=== PATIENT | female | born 1965 | race Native Hawaiian/Other Pacific Islander ===

== ENCOUNTER 2016-08-30 13:44 | Outpatient (CLI) | payer OTHER ==
[~2016-08-30 13:44] MED LIST: ACID REDUCER150 MG PO; ALBU90AE13 INH; BENA20TA2 PO; CIPRO XR500 MG PO; CITALOPRAM40 MG PO; CYCL10TA35 PO; GLIM2TAB PO; MELOXICAM7.5 MG OR; METFTAB PO; TRAM50TA PO
== END 2016-08-30 19:10 | disposition home or self-care (01) ==
LOC: RAD 13:44
DX: M79.605 Pain in left leg (principal)

== ENCOUNTER 2016-09-06 09:04 | Outpatient (CLI) | payer OTHER ==
[2016-09-06 10:11] LABS: PLATELET COUNT 252 K/uL (152-353)
[2016-09-06 10:21] LABS: SODIUM 139 mmol/L (136-145)
== END 2016-09-06 10:04 | disposition home or self-care (01) ==
LOC: LABW 09:04
PROVIDERS: Internal Medicine
DX: E11.9 Type 2 diabetes mellitus without complications (principal)
CPT/HCPCS: 36415; 80053; 80061; 81000; 82043; 82570; 83036; 84439; 84443; 85027

== ENCOUNTER 2016-10-27 10:33 | Outpatient (CLI) | payer OTHER | END 2016-10-27 19:08 | disposition home or self-care (01) | LOC: US 10:33 | DX: M79.605 Pain in left leg (principal); M79.604 Pain in right leg ==

== ENCOUNTER 2016-11-04 21:47 | Outpatient (CLI) | payer OTHER | END 2016-11-04 22:25 | disposition short-term general hospital (02) | LOC: AMB 21:47 | DX: M25.512 Pain in left shoulder (principal); W10.8XXA Fall (on) (from) other stairs and steps, initial encounter; Y92.098 Other place in other non-institutional residence as the place of occurrence of the external cause | CPT/HCPCS: A0425; A0427 ==

== ENCOUNTER 2016-11-27 11:15 | Inpatient (IN) | payer OTHER ==
[~2016-11-27] VITALS: Ht 160 cm; Wt 132.7 kg
[2016-11-27 12:19] VITALS: BP 164/70; TEMP 97.7; Ht 160 cm; Wt 132.7 kg
[2016-11-27 13:00] LABS: PLATELET COUNT 242 K/uL (152-353)
[2016-11-27 13:09] LABS: SODIUM 131 mmol/L (136-145)
[2016-11-27] MEDS ORDERED: GLIM4TAB PO (13:58)
[2016-11-27] MEDS ORDERED: JANUMET1 TA1 PO (14:00)
[2016-11-27] MEDS ORDERED: JANUMET1 TAB PO (14:00)
[2016-11-27] MEDS ORDERED: GABA300C2 PO (14:02)
[2016-11-27] MEDS ORDERED: EC-NAPROSYN500 MG PO (14:02)
[2016-11-27] MEDS ORDERED: HYDR-3182 PO (14:04)
[2016-11-27 16:00] VITALS: BP 148/71; TEMP 98.9
[2016-11-27 20:09] VITALS: BP 151/80; TEMP 98.4
[2016-11-28 00:16] VITALS: BP 135/75; TEMP 98.6
[2016-11-28 04:00] VITALS: BP 92/49; TEMP 97.7
[2016-11-28 04:48] LABS: PLATELET COUNT 287 K/uL (152-353)
[2016-11-28 05:12] LABS: POTASSIUM 3.8 mmol/L (3.6-5.2); SODIUM 142 mmol/L (136-145)
[2016-11-28 08:00] VITALS: BP 118/64; TEMP 98.2
[2016-11-28 12:00] VITALS: BP 100/55; TEMP 98.5
[2016-11-28 16:00] VITALS: BP 90/53; TEMP 97.9
[2016-11-28 20:21] VITALS: BP 96/53; TEMP 97.8
[2016-11-29] VITALS (7 sets, daily range): BP systolic 93–141; BP diastolic 38–71; TEMP 97.5–98.2
[2016-11-29 04:43] LABS: PLATELET COUNT 219 K/uL (152-353)
[2016-11-29 04:58] LABS: POTASSIUM 3.9 mmol/L (3.6-5.2)
[2016-11-30 00:13] VITALS: BP 124/70; TEMP 98
[2016-11-30 04:00] VITALS: BP 133/65; TEMP 97.8
[2016-11-30 04:30] LABS: PLATELET COUNT 213 K/uL (152-353)
[2016-11-30 04:52] LABS: POTASSIUM 4.3 mmol/L (3.6-5.2)
[2016-11-30 07:58] VITALS: BP 124/73; TEMP 97.9
[2016-11-30 12:00] VITALS: BP 138/47; TEMP 98
[2016-11-30 16:00] VITALS: BP 110/64; TEMP 98.2
[2016-11-30 20:22] VITALS: BP 127/72; TEMP 97.9
[2016-12-01] VITALS: BP 103/58; TEMP 97.9
[2016-12-01 04:00] VITALS: BP 125/79; TEMP 97.9
[2016-12-01 05:18] LABS: PLATELET COUNT 213 K/uL (152-353)
[2016-12-01 05:34] LABS: POTASSIUM 4.3 mmol/L (3.6-5.2)
[2016-12-01 08:15] VITALS: BP 168/78; TEMP 98.1
[2016-12-01 12:00] VITALS: BP 132/83; TEMP 98.1
[2016-12-01 16:56] VITALS: BP 107/67; TEMP 97.6
== END 2016-12-01 18:00 | disposition home or self-care (01) | DRG 603 ==
LOC: MED/SURG 11:15
PROVIDERS: Emergency Medicine; ADMIT Internal Medicine
DX: L03.116 Cellulitis of left lower limb (principal); E11.9 Type 2 diabetes mellitus without complications; K59.09 Other constipation; R30.0 Dysuria; S40.022A Contusion of left upper arm, initial encounter
CPT/HCPCS: 36415; 80053; 81000; 82948; 83735; 85027; 85651; 86140; 96365; 96366; 96367; 96372; J1650; J1815; J1956; J2360; J2405; J3475

== ENCOUNTER 2017-02-09 08:22 | Outpatient (CLI) | payer OTHER ==
[~2017-02-09 08:22] MED LIST changes: +EC-NAPROSYN500 MG PO; +GABA300C2 PO; +GLIM4TAB PO; +HYDR-3182 PO; +JANUMET1 TA1 PO; +JANUMET1 TAB PO
== END 2017-02-09 09:30 | disposition home or self-care (01) ==
LOC: CT 08:22
DX: R51 Headache (principal)

== ENCOUNTER 2017-02-12 18:09 | Inpatient (IN) | payer OTHER ==
[2017-02-12] VITALS (26 sets, daily range): BP systolic 68–115; BP diastolic 41–72; TEMP 96.4
[~2017-02-12] VITALS: Ht 160 cm; Wt 142.2 kg
[2017-02-12 19:19] LABS: PLATELET COUNT 259 K/uL (152-353)
[2017-02-12 19:43] LABS: POTASSIUM 3.9 mmol/L (3.6-5.2)
[2017-02-13] VITALS (22 sets, daily range): BP systolic 70–162; BP diastolic 30–72; TEMP 97.1–984; Ht 160 cm; Wt 142.2 kg
[2017-02-13 06:11] LABS: PLATELET COUNT 161 K/uL (152-353)
[2017-02-13 06:20] LABS: POTASSIUM 3.6 mmol/L (3.6-5.2)
[2017-02-14] VITALS (23 sets, daily range): BP systolic 80–169; BP diastolic 43–92; TEMP 97.5–99.5
[2017-02-14 06:29] LABS: PLATELET COUNT 157 K/uL (152-353)
[2017-02-14 06:46] LABS: POTASSIUM 3.7 mmol/L (3.6-5.2)
[2017-02-15] VITALS (16 sets, daily range): BP systolic 84–139; BP diastolic 56–83; TEMP 97.5–98.5
[2017-02-15 06:38] LABS: PLATELET COUNT 155 K/uL (152-353)
[2017-02-15 06:54] LABS: POTASSIUM 3.7 mmol/L (3.6-5.2)
[2017-02-16] VITALS: BP 106/53; TEMP 98.5
[2017-02-16 04:00] VITALS: BP 160/80; TEMP 98
[2017-02-16 06:36] LABS: POTASSIUM 3.9 mmol/L (3.6-5.2)
[2017-02-16 06:50] LABS: PLATELET COUNT 141 K/uL (152-353)
[2017-02-16 08:00] VITALS: BP 149/72; TEMP 97.8
[2017-02-16 12:00] VITALS: BP 143/71; TEMP 97.9
[2017-02-16 16:00] VITALS: BP 157/61; TEMP 98.6
[2017-02-16 20:00] VITALS: BP 150/57; TEMP 97.8
[2017-02-17] VITALS: BP 115/70; TEMP 98.2
[2017-02-17 04:00] VITALS: BP 146/78; TEMP 97.9
[2017-02-17 04:35] LABS: PLATELET COUNT 148 K/uL (152-353)
[2017-02-17 05:06] LABS: POTASSIUM 3.6 mmol/L (3.6-5.2); SODIUM 139 mmol/L (136-145)
[2017-02-17 08:00] VITALS: BP 172/89; TEMP 97.7
[2017-02-17 12:00] VITALS: BP 155/86; TEMP 98.2
[2017-02-17 16:00] VITALS: BP 171/77; TEMP 98.1
[2017-02-17 20:00] VITALS: BP 176/65; TEMP 97.8
[2017-02-18] VITALS: BP 122/65; TEMP 97.8
[2017-02-18 04:00] VITALS: BP 140/66; TEMP 98.1
[2017-02-18 08:00] VITALS: BP 154/85; TEMP 98
[2017-02-18 12:00] VITALS: BP 158/55; BP 177/87; TEMP 98.1; TEMP 99.1
[2017-02-18 16:00] VITALS: BP 153/68; TEMP 97.9
[2017-02-18 20:00] VITALS: BP 167/66; TEMP 97.6
[2017-02-19] VITALS: BP 153/67; TEMP 98.6
[2017-02-19 04:00] VITALS: BP 159/67; TEMP 98.7
[2017-02-19 08:00] VITALS: BP 166/93; TEMP 98.7
[2017-02-19 11:53] VITALS: BP 150/76; TEMP 98.3
== END 2017-02-19 12:45 | disposition home or self-care (01) | DRG 315 ==
LOC: ED 18:09 → ICU 23:12 → MED/SURG 02-15 17:00
PROVIDERS: Emergency Medicine; ADMIT Specialist
DX: I95.89 Other hypotension (principal); L03.116 Cellulitis of left lower limb; E86.0 Dehydration; R11.2 Nausea with vomiting, unspecified; E11.9 Type 2 diabetes mellitus without complications; E83.42 Hypomagnesemia; T62.91XA Toxic effect of unspecified noxious substance eaten as food, accidental (unintentional), initial encounter; Y92.89 Other specified places as the place of occurrence of the external cause; E11.42 Type 2 diabetes mellitus with diabetic polyneuropathy; I10 Essential (primary) hypertension
CPT/HCPCS: 36415; 36600; 51702; 80048; 80053; 80307; 81000; 81002; 82043; 82306; 82570; 82805; 82948; 82962; 83605; 83735; 83880; 84100; 84300; 84484; 84540; 85027; 87040; 93306; 96361; 96365; 96372; 96375; 99285; G0479; J0500; J0712; J1815; J1885; J1940; J2405; J2543; J2550; J2765; J3475

== ENCOUNTER 2017-05-21 10:53 | Outpatient (CLI) | payer OTHER ==
[2017-05-21 11:08] LABS: PLATELET COUNT 244 K/uL (152-353)
[2017-05-21 11:33] LABS: SODIUM 140 mmol/L (136-145)
== END 2017-05-21 19:02 | disposition home or self-care (01) ==
LOC: LABW 10:53
PROVIDERS: Physician Assistant
DX: I10 Essential (primary) hypertension (principal); E11.9 Type 2 diabetes mellitus without complications; R63.5 Abnormal weight gain
CPT/HCPCS: 36415; 80053; 80061; 83036; 84439; 84443; 85027

== ENCOUNTER 2017-08-21 10:43 | Outpatient (CLI) | payer OTHER ==
[2017-08-21 11:30] LABS: POTASSIUM 4.1 mmol/L (3.6-5.2)
== END 2017-08-21 23:03 | disposition home or self-care (01) ==
LOC: LABW 10:43
PROVIDERS: Internal Medicine
DX: I10 Essential (primary) hypertension (principal)
CPT/HCPCS: 36415; 80053; 80061

== ENCOUNTER 2017-11-13 09:22 | Outpatient (CLI) | payer OTHER ==
[2017-11-13 10:32] LABS: POTASSIUM 4.1 mmol/L (3.6-5.2)
== END 2017-11-13 22:29 | disposition home or self-care (01) ==
LOC: LABW 09:22 → LAB 09:22
PROVIDERS: Internal Medicine
DX: I10 Essential (primary) hypertension (principal)
CPT/HCPCS: 36415; 80053; 81000

== ENCOUNTER 2018-05-15 09:51 | Outpatient (CLI) | payer OTHER ==
[2018-05-15 10:19] LABS: POTASSIUM 4.3 mmol/L (3.6-5.2)
== END 2018-05-15 20:57 | disposition home or self-care (01) ==
LOC: LABW 09:51
PROVIDERS: Internal Medicine
DX: E11.9 Type 2 diabetes mellitus without complications (principal)
CPT/HCPCS: 36415; 80053; 80061; 83036

== ENCOUNTER 2018-08-02 12:07 | Outpatient (CLI) | payer OTHER | END 2018-08-02 19:16 | disposition home or self-care (01) | LOC: RAD 12:07 | DX: M79.605 Pain in left leg (principal) ==

== ENCOUNTER 2018-08-08 15:59 | Outpatient (CLI) | payer OTHER | END 2018-08-08 21:43 | disposition home or self-care (01) | LOC: LABW 15:59 | DX: I89.0 Lymphedema, not elsewhere classified (principal) | CPT/HCPCS: 36415; 82565; 84520 ==

== ENCOUNTER 2018-11-07 09:47 | Outpatient (CLI) | payer OTHER ==
[2018-11-07 10:32] LABS: PLATELET COUNT 209 K/uL (152-353)
[2018-11-07 10:56] LABS: POTASSIUM 4.3 mmol/L (3.6-5.2)
== END 2018-11-07 20:30 | disposition home or self-care (01) ==
LOC: LABW 09:47
PROVIDERS: Internal Medicine
DX: E11.9 Type 2 diabetes mellitus without complications (principal)
CPT/HCPCS: 36415; 80053; 80061; 81000; 82043; 82570; 83036; 84439; 84443; 85027

== ENCOUNTER 2019-01-06 15:08 | Emergency (ER) | payer OTHER ==
[~2019-01-06] VITALS: Ht 160 cm; Wt 139.7 kg
[2019-01-06 17:45] LABS: PLATELET COUNT 213 K/uL (152-353)
[2019-01-06 20:49] VITALS: BP 148/79; TEMP 97.9
== END 2019-01-06 20:50 | disposition home or self-care (01) ==
LOC: ED 15:08
PROVIDERS: Emergency Medicine
DX: K52.9 Noninfective gastroenteritis and colitis, unspecified (principal)
CPT/HCPCS: 74022; 80053; 81000; 82150; 83690; 85027; 96360; 96375; 99284; J2405

== ENCOUNTER 2019-02-28 12:25 | Outpatient (CLI) | payer OTHER ==
[2019-02-28 12:51] LABS: PLATELET COUNT 213 K/uL (152-353)
[2019-02-28 13:17] LABS: POTASSIUM 4.1 mmol/L (3.6-5.2)
== END 2019-02-28 23:47 | disposition home or self-care (01) ==
LOC: LABW 12:25
PROVIDERS: Internal Medicine
DX: E11.9 Type 2 diabetes mellitus without complications (principal)
CPT/HCPCS: 36415; 80053; 80061; 81000; 83036; 84439; 84443; 85027

== ENCOUNTER 2019-08-11 15:42 | Outpatient (CLI) | payer OTHER | END 2019-08-11 20:14 | disposition home or self-care (01) | LOC: RAD 15:42 | DX: J40 Bronchitis, not specified as acute or chronic (principal) ==

== ENCOUNTER 2019-08-12 08:13 | Outpatient (CLI) | payer OTHER ==
[2019-08-12 09:03] LABS: POTASSIUM 3.3 mmol/L (3.6-5.2)
[2019-08-12 09:49] LABS: PLATELET COUNT 247 K/uL (152-353)
== END 2019-08-12 20:08 | disposition home or self-care (01) ==
LOC: LABW 08:13
PROVIDERS: Internal Medicine
DX: E11.9 Type 2 diabetes mellitus without complications (principal)
CPT/HCPCS: 36415; 80053; 81000; 83036; 83735; 84439; 84443; 85027